=== PATIENT | female | born 1955 | race Caucasian/White ===

== ENCOUNTER 2022-01-11 17:18 | Inpatient (IN) | payer OTHER ==
[~2022-01-11] VITALS: Ht 162.6 cm; Wt 66.2 kg
--- NOTE | 2022-01-11 17:35 | NUR ---
patient [email or web address] from snf altered, sob. Connected to the monitor and pulse ox. kept comfortbale,, will continue to to monitor accordingly.
--- NOTE | 2022-01-11 17:36 | NUR ---
Dr. Harvey at bedside for eval.
[2022-01-11] MEDS ORDERED: NALOXONE PREFILLED SYRINGE 2 MG/2 ML SYRINGE ONE (17:44)
[2022-01-11] MEDS ORDERED: ACETAMINOPHEN 650 MG/SUPP.RECT RC ONE ×2 (17:44→18:00)
[2022-01-11 17:50] LABS: ABG BASE EXCESS -3.1 mmol/L; ABG PCO2 27.1 mmHg (35.0-45.0); ABG PH 7.465 (7.350-7.450); ABG PO2 155.4 mmHg (75.0-100.0); COHb 0.1 % (0.5-1.5); MetHb 0.4 % (0.0-1.5); O2Hb 98.3 % (94.0-97.0); SITE, ABG Right Radial; VENT MODE, BG NRB 15L
[2022-01-11] MEDS ORDERED: NALOXONE HCL 0.4 MG/ML AMPUL IV ONE (18:00)
[2022-01-11] MEDS ORDERED: IV NS 0.9% 1,000 ML BAG IV ONE (18:00)
--- NOTE | 2022-01-11 18:05 | NUR ---
MOVE SHEET SUBMITTED.
[2022-01-11 18:21] LABS: BASOPHILS % (AUTO) 0.2 % (0.0-2.0); EOSINOPHILS % (AUTO) 0.1 % (0.0-6.0); HEMATOCRIT 41 % (33-45); HEMOGLOBIN 13.3 g/dL (11.5-14.8); LYMPHOCYTES % (AUTO) 8.1 % (20.0-44.0); MEAN CORPUSCULAR HGB CONC 33 g/dl (31.0-36.0); MEAN CORPUSCULAR VOLUME 92 fL (82-100); MONOCYTES % (AUTO) 8.1 % (2.0-12.0); NEUTROPHILS # (AUTO) 10.1 K/uL (1.8-8.9); NEUTROPHILS % (AUTO) 83.5 % (43.0-81.0); PLATELET COUNT (AUTO) 195 K/uL (150-450); RED BLOOD CELL COUNT(AUTO) 4.41 MIL/uL (4.0-5.2); WHITE BLOOD COUNT (AUTO) 12.1 K/uL (4.3-11.0)
[2022-01-11 18:31] LABS: BILIRUBIN,URINE SMALL (NEGATIVE); COLOR,URINE YELLOW (YELLOW); LEUKOCYTE ESTERASE ,URINE SMALL (NEGATIVE); NITRITE, URINE NEGATIVE (NEGATIVE); PH,URINE 5.5 (5.0-8.0); PROTEIN,URINE 100 mg/dl (NEGATIVE); UGLUCOSE >=1000 mg/dL (NEGATIVE)
--- NOTE | 2022-01-11 18:36 | NUR ---
patient to ct
[2022-01-11] MEDS ORDERED: LORA-259 PO (18:49)
[2022-01-11] MEDS ORDERED: NA P133E RC (18:49)
[2022-01-11] MEDS ORDERED: MULT-447 PO (18:49)
[2022-01-11] MEDS ORDERED: BISA10SU11 RC (18:49)
[2022-01-11] MEDS ORDERED: LEVE1000 PO (18:49)
[2022-01-11] MEDS ORDERED: METO25TA20 PO (18:49)
[2022-01-11] MEDS ORDERED: ATOR40TA PO (18:49)
[2022-01-11] MEDS ORDERED: CIPR2.5D14 RIGHTEYE (18:49)
[2022-01-11] MEDS ORDERED: ACET-868 PO (18:49)
[2022-01-11] MEDS ORDERED: MAGN400O6 PO (18:49)
[2022-01-11] MEDS ORDERED: LACT10SO3 PO (18:49)
[2022-01-11] MEDS ORDERED: ONDA4TAB5 PO (18:49)
[2022-01-11] MEDS ORDERED: COLC0.6C3 PO (18:49)
[2022-01-11] MEDS ORDERED: GLUC1KIT IM (18:49)
[2022-01-11] MEDS ORDERED: INSU100V42 SQ (18:49)
[2022-01-11] MEDS ORDERED: DAPA10TA PO (18:49)
[2022-01-11] MEDS ORDERED: FURO20TA4 PO (18:49)
[2022-01-11] MEDS ORDERED: LACO100T2 PO (18:49)
[2022-01-11] MEDS ORDERED: WARF-68 PO (18:49)
[2022-01-11] MEDS ORDERED: ASCO-340 PO (18:49)
[2022-01-11 18:56] LABS: ALANINE AMINOTRANSFERASE 107 U/L (12-78); ALBUMIN 3.1 g/dL (3.4-5.0); ALKALINE PHOSPHATASE 185 U/L (46-116); ASPARTATE AMINOTRANSFERASE 85 U/L (15-37); BILIRUBIN,DIRECT 0.7 mg/dL (0.0-0.2); BILIRUBIN,TOTAL 2.1 mg/dL (0.2-1.0); CARBON DIOXIDE 18 mmol/L (21-32); CHLORIDE 108 mmol/L (98-107); GLUCOSE 187 mg/dL (74-106); POTASSIUM 4.1 mmol/L (3.5-5.1); SERUM AMMONIA 38 umol/L (11-32); SODIUM SERUM 141 mmol/L (136-145); THYROID STIMULATING HORMONE 1.735 uIU/mL (0.358-3.74); TOTAL PROTEIN, SERUM 7.4 g/dL (6.4-8.2); UREA NITROGEN, BLOOD 65 mg/dL (7-18)
[2022-01-11 19:09] LABS: BACTERIA,URINE 3+ /HPF (None Seen); SQUAMOUS EPITHELIAL CELL,UR Few /HPF (None Seen); WBC,URINE 81-100 /HPF (0-3)
[2022-01-11] MEDS ORDERED: CEFTRIAXONE 1GM BAG (ER ONLY) 50 ML IV ONE ×2 (19:24→19:30)
--- NOTE | 2022-01-11 19:41 | NUR ---
TOOK OVER PT CARE. PT RESTING COMFORTABLY. REMAINS ON LAW ENFORCEMENT INSTRUCTOR AND PULSE OX. PT NOTED TO BE TACHY, RECIEVING FLUIDS CURRENTLY. CALL LIGHT AT BEDSIDE. PT RESPONDS WITH "MMMM" WHEN CALLED BY HER NAME. WILL CONTINUE TO MONITOR. PENDING ADMISSION.
--- NOTE | 2022-01-11 22:14 | NUR ---
Awaiting Admission bed.
[2022-01-11] MEDS ORDERED: IV 1/2NS 1000 ML 1,000 ML IV PRN (22:30)
[2022-01-11] MEDS ORDERED: DEXTROSE 50%-WATER 50 ML DISP.SYRIN IV PRN (22:30)
[2022-01-11] MEDS ORDERED: INSULIN REGULAR, HUMAN 100 UNIT/ML 3 ML VIAL SQ PRN (22:30)
[2022-01-11] MEDS ORDERED: ONDANSETRON HCL/PF 4 MG/2 ML VIAL IV PRN (22:30)
[2022-01-11] MEDS ORDERED: ACETAMINOPHEN 325 MG TABLET PO PRN (22:30)
[2022-01-11] MEDS ORDERED: LEVETIRACETAM (500MG) 1,000 MG in IV NS 0.9% 100 ML IV SCH (22:30)
[2022-01-12] MEDS ORDERED: ACETAMINOPHEN 650 MG/SUPP.RECT RC ONE (00:18)
[2022-01-12] MEDS: ACETAMINOPHEN 650 MG/SUPP.RECT RC PRN ×2 (00:27→08:52)
--- NOTE | 2022-01-12 00:28 | NUR ---
Pt temp noted to be 102.2. Tylenol rectal 650 mg given.
[2022-01-12] MEDS: BLOOD SUGAR DIAGNOSTIC 1 EACH STRIP IN SCH ×2 (00:30→08:06)
[2022-01-12] MEDS ORDERED: LEVETIRACETAM (500MG) 1,000 MG in IV NS 0.9% 100 ML IV SCH (00:30)
[2022-01-12] MEDS ORDERED: ENOXAPARIN SODIUM 60 MG/0.6 ML DISP.SYRIN SQ ONE ×2 (00:30→00:43)
[2022-01-12] MEDS ORDERED: LEVETIRACETAM (500MG) 500 MG/5 ML VIAL IV ONE (00:32)
[2022-01-12] MEDS ORDERED: MEROPENEM 1 G VIAL IV ONE (00:50)
[2022-01-12] MEDS ORDERED: MEROPENEM 500 MG in IV NS 0.9% 50 ML IV ONE (01:00)
[2022-01-12] MEDS ORDERED: METOPROLOL TARTRATE INJ 5 MG/5 ML AMPUL ONE (02:24)
--- NOTE | 2022-01-12 02:24 | NUR ---
Heart rate remains high, MD was contacted. Will initiate orders.
[2022-01-12] MEDS ORDERED: METOPROLOL TARTRATE INJ 5 MG/5 ML AMPUL IVP PRN (02:30)
[2022-01-12] MEDS ORDERED: METOPROLOL TARTRATE INJ 5 MG/5 ML AMPUL IVP SCH (03:00)
[2022-01-12 05:31] LABS: BASOPHILS % (AUTO) 0.5 % (0.0-2.0); EOSINOPHILS % (AUTO) 0.3 % (0.0-6.0); HEMATOCRIT 27 % (33-45); HEMOGLOBIN 8.6 g/dL (11.5-14.8); LYMPHOCYTES # (AUTO) 1.2 K/uL (0.8-4.8); LYMPHOCYTES % (AUTO) 11.5 % (20.0-44.0); MEAN CORPUSCULAR HGB CONC 32 g/dl (31.0-36.0); MEAN CORPUSCULAR VOLUME 100 fL (82-100); MONOCYTES # (AUTO) 0.8 K/uL (0.1-1.30); MONOCYTES % (AUTO) 7.7 % (2.0-12.0); NEUTROPHILS # (AUTO) 8.4 K/uL (1.8-8.9); PLATELET COUNT (AUTO) 129 K/uL (150-450); WHITE BLOOD COUNT (AUTO) 10.5 K/uL (4.3-11.0)
[2022-01-12 05:41] LABS: CREATININE 1.7 mg/dL (0.6-1.3); POTASSIUM 2.9 mmol/L (3.5-5.1)
--- NOTE | 2022-01-12 05:45 | NUR ---
CALLED LAB FOR REPEAT OF AM LABS DUE TO ABNORMAL FINDINGS.
[2022-01-12 05:46] LABS: ALBUMIN 1.8 g/dL (3.4-5.0); BILIRUBIN,TOTAL 1.3 mg/dL (0.2-1.0); TOTAL PROTEIN, SERUM 4.5 g/dL (6.4-8.2)
[2022-01-12 05:48] LABS: CALCIUM, SERUM 5.2 mg/dL (8.5-10.1)
--- NOTE | 2022-01-12 06:00 | NUR ---
PT ON AGONAL BREATHING. AMBUBAGGING DONE AT 15LPM.
--- NOTE | 2022-01-12 06:05 | NUR ---
PATIENT ON AMBUBAGGING AT 15LPM, HR 26BPM, BP- NOT APPRECIATED. CPR STARTED WITH AMBUBAGGING AT 15LPM
--- NOTE | 2022-01-12 06:08 | NUR ---
INTUBATION DONE BY DR DARLING USING ET SIZE 7, LIP ON .
--- NOTE | 2022-01-12 06:08 | NUR ---
HR- OBPM, BP- 0 mmHg, RR- AMBUBAGGING AT 15LPM. 1ST DOSE OF EPINEPHRINE GIVEN
--- NOTE | 2022-01-12 06:11 | NUR ---
HR-0BPM, BP- 0mmHg, RR- AMBUBAGGING. 2ND DOSE OF EPINEPHRINE GIVEN
--- NOTE | 2022-01-12 06:11 | NUR ---
BICARB 50 MEQ GIVEN IV PUSH
--- NOTE | 2022-01-12 06:13 | NUR ---
BP-126/79mmHg, HR 133, SATS 98% AMBUBAGGING.
--- NOTE | 2022-01-12 06:16 | NUR ---
ATTACHED TO VENT WITH SETTINGS: TV 500ml, FiO2 100%, RATE OF 18, PEEP-5.
--- NOTE | 2022-01-12 06:17 | NUR ---
DR LARSON NOTIFIED OF REPIRSTORY ARREST, CARDIAC ARREST.
[2022-01-12] MEDS ORDERED: NOREPINEPHRINE 4 MG/4 ML AMPUL IV ONE (06:23)
--- NOTE | 2022-01-12 06:25 | NUR ---
RT NOTE Upon arrival to ER 8, CPR initiated. Pt orally intubated via ETT sz 7.0 secured at 23cm at the lipline per MD orders. Color change via CO2 detector. Clear Bilateral breath sounds heard on auscultation. Bilateral chest noted. After ROSC was achieved, [facility] AC mode settings as charted per MD orders. Alarms set and audible. ambu bag at bedside. Vent plugged into red outlet. waiting on chest xray result. Addendum: 01/12/22 at 0711 by ERLINDA VILLATORO RT Amended: Links added.
--- NOTE | 2022-01-12 06:30 | NUR ---
NGT F16 INSERTED ON LEFT NOSTRIL LEVEL 55 ATTACHED TO LOW INTERMITTENT SUCTION.
--- NOTE | 2022-01-12 06:37 | NUR ---
VITALS: HR 106BPM, BP 143/23, SATS 92, [id number].
[2022-01-12 06:42] LABS: ABG BASE EXCESS -21.2 mmol/L; ABG OXYGEN SATURATION 99.5 % (92.0-98.5); ABG PCO2 20.9 mmHg (35.0-45.0); ABG PH 7.109 (7.350-7.450); ABG PO2 451.2 mmHg (75.0-100.0); AaDO2 240.9 mmHg; COHb 0.3 % (0.5-1.5); MetHb 0.4 % (0.0-1.5); O2Hb 98.8 % (94.0-97.0); PEEP,BG 5 cm H2O; SITE, ABG Left Radial; VENT MODE, BG AC 18 500 100% +5; VT, ABG 500 mL
--- NOTE | 2022-01-12 06:48 | NUR ---
HR 32 (PEA) BP 80/40mmHg, SATS 81% ATTACHED TO VENT WITH SAME SETTINGS. CPR STARTED. EPINEPHRINE 1 MG IV PUSH GIVEN
--- NOTE | 2022-01-12 06:50 | NUR ---
BICARB 50 MEQ IV PUSH GIVEN.
--- NOTE | 2022-01-12 06:51 | NUR ---
ROSC NOTED. PULSE CHECKED USING DOPPLER. HR 110BPM, BP 135/90mmHg, SATS 95% ATTACHED TO VENTILATOR.
--- NOTE | 2022-01-12 06:55 | NUR ---
MD Roblero speaking to pt's family.
[2022-01-12] MEDS: NOREPINEPHRINE 8 MG in IV NS 0.9% 242 ML IV PRN ×2 (07:00→08:56)
[2022-01-12 07:24] LABS: BASOPHILS # (AUTO) 0.1 K/uL (0.0-0.2); BASOPHILS % (AUTO) 0.6 % (0.0-2.0); EOSINOPHILS % (AUTO) 0.4 % (0.0-6.0); HEMATOCRIT 42 % (33-45); HEMOGLOBIN 12.9 g/dL (11.5-14.8); LYMPHOCYTES # (AUTO) 3.5 K/uL (0.8-4.8); LYMPHOCYTES % (AUTO) 16.5 % (20.0-44.0); MEAN CORPUSCULAR HGB CONC 31 g/dl (31.0-36.0); MEAN CORPUSCULAR VOLUME 96 fL (82-100); MONOCYTES # (AUTO) 0.9 K/uL (0.1-1.30); MONOCYTES % (AUTO) 4.5 % (2.0-12.0); NEUTROPHILS # (AUTO) 16.4 K/uL (1.8-8.9); PLATELET COUNT (AUTO) 166 K/uL (150-450); RED BLOOD CELL COUNT(AUTO) 4.35 MIL/uL (4.0-5.2)
--- NOTE | 2022-01-12 07:25 | NUR ---
RECEIVED PT FROM MAC PAGE at bed side aware about pt condition criticale lovoghed ghzy5apy/kg min bp102/31mmhg hr 133b/min infused on rt wrested patent skin cold and dry to touch ETT conected to mechincale italo sitting fio2 100% ac 18/min tv 500 peep 5
--- NOTE | 2022-01-12 07:30 | NUR ---
DR. LARSON AT BED SIDE SEE and examin pt contenue moniting pt
--- NOTE | 2022-01-12 07:45 | NUR ---
room 253
[2022-01-12 07:49] LABS: ALBUMIN 2.7 g/dL (3.4-5.0); BILIRUBIN,TOTAL 2.6 mg/dL (0.2-1.0); CALCIUM, SERUM 8.4 mg/dL (8.5-10.1); CREATININE 3.6 mg/dL (0.6-1.3); POTASSIUM 5.7 mmol/L (3.5-5.1); TOTAL PROTEIN, SERUM 6.6 g/dL (6.4-8.2)
--- NOTE | 2022-01-12 07:59 | NUR ---
CO2 10, BUN 80, GLU 53, TROP 257. DR ORTIZ MADE AWARE
--- NOTE | 2022-01-12 08:01 | NUR ---
HAND RED.G RN TO ROOM 253 PT CONDITION CRITIALE WATING FOR PICC LINE TO INSERTED BEEN CALLED AND REQUSTED
--- NOTE | 2022-01-12 08:07 | NUR ---
ACCU-CHECK 79MG/DL
[2022-01-12 08:30] VITALS: BP 112/63
--- NOTE | 2022-01-12 08:40 | NUR ---
FINGER COBBLERPLATFORM BUILDER NOTE: PT. ADMITTED TO UNIT AT 0820 FROM ER VIA RNEY. REPORT GIVEN BY TRANSITIONAL CARE LIAISON MAGALYS. S/P CARDIAC ARREST X2 IN ER WITH ADMITTING DIAGNOSIS OF SEPSIS. RECEIVED PT. INTUBATED AND ON FULL VENT SUPPORT. VENT SETTINGS: ETT - 7.5/22; AC - 18; FIO2 - 100%; PEEP - 5. PT. UNRESPONSIVE TO BOTH VERBAL/TACTILE STIMULI. PUPILS NON-REACTIVE BILATERALLY. NO GAG/COUGH REFLEX NOTED. PT. AFIB ON DIRECTOR FOOD AND BEVERAGE. ALL EXTREMITIES FLACCID AND SKIN IS MOTTLED ALL OVER THE BODY. SEE VITAL SIGNS FORM FOR COMPLETE SET OF VITAL SIGNS.
--- NOTE | 2022-01-12 08:40 | NUR ---
fio2 50% and no peep per dr. carvalho. Addendum: 01/12/22 at 0840 by GERRY MARS RT Amended: Links added.
[2022-01-12 08:56] VITALS: BP 112/90
[2022-01-12] MEDS ORDERED: ASPIRIN EC 81 MG TABLET.DR PO SCH (09:00)
[2022-01-12] MEDS ORDERED: LACOSAMIDE 50 MG TABLET PO SCH (09:00)
[2022-01-12] MEDS ORDERED: WARFARIN SODIUM 2 MG TABLET PO SCH (09:00)
[2022-01-12] MEDS ORDERED: NOREPINEPHRINE 8 MG in IV NS 0.9% 242 ML IV PRN (09:00)
[2022-01-12] MEDS ORDERED: METOPROLOL TARTRATE 25 MG TABLET PO SCH (09:00)
[2022-01-12] MEDS ORDERED: MEROPENEM 500 MG in IV NS 0.9% 50 ML IV SCH (09:00)
[2022-01-12] MEDS ORDERED: SODIUM POLYSTYRENE SULFONATE 15 G/60 ML BOTTLE NG ONE (09:00)
[2022-01-12] MEDS ORDERED: LACTULOSE 10 G/15 ML UDC (PYXIS) PO SCH (09:00)
--- NOTE | 2022-01-12 09:10 | NUR ---
VOICE PATHOLOGIST NOTE: PT. NOTED TO HAVE HR AT 40'S. NO PALPABLE PULSES NOTED. PT. ON PEA. CODE BLUE CALLED AT 0900. SEE CODE BLUE DOCUMENTATION.
--- NOTE | 2022-01-12 09:20 | NUR ---
BLOCK SAWYER NOTE: PT.'S IN UNIT AT 0915. DR. DE JESUS SPOKE TO FAMILY. RESUSCITATION CONTINUED. PT. REMAINED ASYSTOLE DESPITE ALL EFFORTS. CODE BLUE TERMINATED AND PT. PRONOUNCED AT 0917.
[2022-01-12] MEDS ORDERED: SODIUM BICARBONATE SYR 50 MEQ/50 ML DISP.SYRIN ONE (09:24)
[2022-01-12] MEDS ORDERED: EPINEPHRINE (1:10,000) SYRINGE 1 MG/10 ML DISP.SYRIN ONE (09:24)
[2022-01-12] MEDS ORDERED: CALCIUM CHLORIDE 1,000 MG/10 ML DISP.SYRIN IV ONE (09:37)
[2022-01-12] MEDS ORDERED: EPINEPHRINE (1:10,000) SYRINGE 1 MG/10 ML DISP.SYRIN IVP ONE (09:37)
[2022-01-12] MEDS ORDERED: SODIUM BICARBONATE SYR 50 MEQ/50 ML DISP.SYRIN IV ONE (09:37)
--- NOTE | 2022-01-12 10:00 | NUR ---
STOCK CHASER NOTE: CALLED [employer] AT 0940. REFERENCE # [id number]. SPOKE WITH MALCOLM FROM [employer] AND STATED THAT PT. IS NOT A CANDIDATE FOR DONATION. CALLED ASSEMBLER CAMPER AT 0956 AND SPOKE WITH ELECTROMEDICAL EQUIPMENT REPAIRER AFSHAN. SHE STATED THAT PT. IS NOT A CORONERS CASE AND BODY CAN BE RELEASED TO MORTUARY. POST-MORTEM CARE PROVIDED AT BEDSIDE. WILL PROVIDE SUPPORT TO FAMILY.
--- NOTE | 2022-01-12 11:44 | NUR ---
SS consult: SS consult requested for family who needs to make cremation arrangements. The pt. is a 66 year old female who was pronounced at 0917. SW met with patient's , Elton Scott [phone] at bedside. SW provided emotional support and provided a list of cremation companies. Family accepted resources and stated he will be calling the locations and making arrangements. [facility] [place] [address] [place], [place] [phone] [facility] [phone] [facility] [address] [facility] [place], [place] [phone] [facility] [address] [facility] [place], [place] [phone] [place], [place], [facility] [id number] [facility] Hospit[facility]. [place], [place] [phone] [id number] [place] [phone] [place], [place] [id number] [phone] [facility] [address] [place], [place] [phone] [id number] [facility] [address] [place], [place] [phone] [place] [facility] [phone] [facility] [phone] [facility]5790 [facility] [address] [place], [place], [place] [phone] [facility]50 [place], [place] [phone] [facility] [address] [place], [place] [phone] [facility] [place], [place] [phone] NICHOLE Vega, Jan/ Skinny Vergara Qklgev[address]17 [place], [place] [phone] Bijan Bautista [id number] [facility]. [place], [place] [phone] [place] [facility] [address] [place], [place] [phone] Mathis Dmkqvfij[address] [place], [place] [phone] ALEJANDRAOTILIO Sushma I[address]gxp[address] [place], [place] [phone] NICHOLE Vega Dqaslzlu8710 [facility] [place], [place] [phone] [facility] [address] [place], [place] [phone] [place] [address] [place], [place] [phone] [facility] [address] [place], [place] [phone] [place] [facility] [place] [address], 3rd Floor [place], [place] [phone] (fax) [facility] Thwcjmyp4927 Acosta Fagan. TAVON Zarco [phone] [facility] Alexi Zpehzfjq8931 [place] Sanders [phone] [facility] and [phone]
[2022-01-12 14:06] LABS: BAND % (MANUAL) 1 % (0.0-5.0); LYMPHOCYTES % (MANUAL) 21 % (16-48); MONOCYTES % (MANUAL) 8 % (0-11.0); NEUTROPHILS % (MANUAL) 70 (42-76)
== END 2022-01-12 12:30 | DRG 871 ==
LOC: ER 17:28 → TRANSITION 01-12 00:15 → ICU 01-12 08:12
PROVIDERS: ADMIT Internal Medicine; ATTEND Internal Medicine
PROC: 5A1935Z Respiratory Ventilation, Less than 24 Consecutive Hours (ICD-10-PCS; principal; 2022-01-12)
PROC: 0BH17EZ Insertion of Endotracheal Airway into Trachea, Via Natural or Artificial Opening (ICD-10-PCS; 2022-01-12)
PROC: 5A2204Z Restoration of Cardiac Rhythm, Single (ICD-10-PCS; 2022-01-12)
PROC: 5A2204Z Restoration of Cardiac Rhythm, Single (ICD-10-PCS; 2022-01-12)
DX: A41.9 Sepsis, unspecified organism (principal); G93.41 Metabolic encephalopathy; I50.23 Acute on chronic systolic (congestive) heart failure; J96.00 Acute respiratory failure, unspecified whether with hypoxia or hypercapnia; N17.0 Acute kidney failure with tubular necrosis; R65.21 Severe sepsis with septic shock; I21.A1 Myocardial infarction type 2; N39.0 Urinary tract infection, site not specified; I13.0 Hypertensive heart and chronic kidney disease with heart failure and stage 1 through stage 4 chronic kidney disease, or unspecified chronic kidney disease; E46 Unspecified protein-calorie malnutrition; E87.0 Hyperosmolality and hypernatremia; E87.3 Alkalosis; G40.909 Epilepsy, unspecified, not intractable, without status epilepticus; I48.91 Unspecified atrial fibrillation; Z20.822 Contact with and (suspected) exposure to COVID-19; E88.09 Other disorders of plasma-protein metabolism, not elsewhere classified; E11.22 Type 2 diabetes mellitus with diabetic chronic kidney disease; N18.9 Chronic kidney disease, unspecified; R13.10 Dysphagia, unspecified; Z88.8 Allergy status to other drugs, medicaments and biological substances; Z79.01 Long term (current) use of anticoagulants; Z79.4 Long term (current) use of insulin; Z79.899 Other long term (current) drug therapy; R74.01 Elevation of levels of liver transaminase levels; M06.9 Rheumatoid arthritis, unspecified; I69.398 Other sequelae of cerebral infarction; I08.1 Rheumatic disorders of both mitral and tricuspid valves; G93.89 Other specified disorders of brain; I25.10 Atherosclerotic heart disease of native coronary artery without angina pectoris; Z95.2 Presence of prosthetic heart valve; Z95.1 Presence of aortocoronary bypass graft; E78.5 Hyperlipidemia, unspecified; E87.5 Hyperkalemia; L89.309 Pressure ulcer of unspecified buttock, unspecified stage
CPT/HCPCS: 36415; 36600; 70450-TC; 71045-TC; 76700-TC; 80048-TC; 80053-TC; 80076-TC; 81001; 82140-TC; 82962-TC; 83605-TC; 83880; 84443-TC; 84484-TC; 85025-TC; 85730-TC; 87040-TC; 87081-TC; 87086-TC; 87186-TC; 93307-TC; C9803; G0378; J0171; J0696; J1650; J1953; J2185; J2310; J2405; J3490; J7030; J7050